=== PATIENT | female | born 1985 | race Two or more races ===

== ENCOUNTER 2016-08-01 10:36 | Emergency (ER) | payer BC, OTHER ==
[~2016-08-01] VITALS: Ht 160 cm; Wt 70.8 kg
[~2016-08-01 10:36] MED LIST: HYDR-971 PO; IBUP-1060 PO; NAPR500T8 PO; OXYC-244 PO; PNV1TABL25 PO
[2016-08-01 11:12] VITALS: BP 128/92
--- NOTE | 2016-08-01 12:36 | PHYS DOC ---
Past Medical History Past Medical History: No Pertinent History Past Surgical History: , Other Additional Past Surgical Histo: BREAST SURG Alcohol Use: None Drug Use: None Adult General Chief Complaint Chief Complaint: VAGINAL PROBLEM [facility] HPI Patient is a 31 year old female who presents stating yesterday she noted she has extra vaginal tissue hanging around the vagina, patient denies any concern for STDs. She states she also noted increased vaginal discharge since yesterday. Patient denies any chance she is . Denies any urgency frequency or dysuria. She states she has an appointment with her DATA TECHNICIAN on next week. Patient is Czech-speaking and interpretation was provided by the Review of Systems Review of Systems Constitutional: Denies fever or chills [] Eyes: Denies change in visual acuity, redness, or eye pain [] HENT: Denies nasal congestion or sore throat [] Respiratory: Denies cough or shortness of breath [] Cardiovascular: No additional information not addressed in HPI [] GI: Denies abdominal pain, nausea, vomiting, bloody stools or diarrhea [] : extra vaginal tissue hanging around the vagina Musculoskeletal: Denies back pain or joint pain [] Integument: Denies rash or skin lesions [] Neurologic: Denies headache, focal weakness or sensory changes [] Endocrine: Denies polyuria or polydipsia [] Allergies Allergies Allergies Coded Allergies Type Severity Reaction Last Updated Verified No Known Drug Allergies 05/02/14 No Physical Exam Physical Exam Constitutional: Well developed, well nourished, no acute distress, non-toxic appearance. [] HENT: Normocephalic, atraumatic, bilateral external ears normal, oropharynx moist, no oral exudates, nose normal. [] Eyes: PERRLA, EOMI, conjunctiva normal, no discharge. [] Neck: Normal range of motion, no tenderness, supple, no stridor. [] Cardiovascular:Heart rate regular rhythm, no murmur [] Lungs & Thorax: Bilateral breath sounds clear to auscultation [] Abdomen: Bowel sounds normal, soft, no tenderness, no masses, no pulsatile masses. [] Pelvic exam Lower aspect of the vaginal opening has mild amount of extra tissue with the redness, the tissue is not draining anything. The tissue is not warm or tender to touch. Cervix is closed no CMT, no adnexal tenderness, small amount of yellow discharge in the vaginal vault. No bleeding Skin: Warm, dry, no erythema, no rash. [] Back: No tenderness, no CVA tenderness. [] Extremities: No tenderness, no cyanosis, no clubbing, ROM intact, no edema. [] Neurologic: Alert and oriented X 3, normal motor function, normal sensory function, no focal deficits noted. [] Psychologic: Affect normal, judgement normal, mood normal. [] Current Patient Data Vital Signs Vital Signs Date Time Temp Pulse Resp B/P Pulse Ox O2 Delivery O2 Flow Rate FiO2 08/01/16 11:12 97.5 92 16 128/92 99 Room Air 97.5 Lab Values Laboratory Tests Test 08/01/16 11:10 08/01/16 12:00 POC Urine HCG, Qualitative Hcg negative (Negative) Urine Collection Type Void Urine Color Yellow Urine Clarity Turbid Urine pH 6.5 Urine Specific [place] 1.025 Urine Protein 100mg/dL (NEG-TRACE) Urine Glucose (UA) Negativemg/dL (NEG) Urine Ketones (Stick) Negativemg/dL (NEG) Urine Blood Moderate (NEG) Urine Nitrite Negative (NEG) Urine Bilirubin Negative (NEG) Urine Urobilinogen Dipstick 0.2mg/dL (0.2 mg/dL) Urine Leukocyte Esterase Large (NEG) Urine RBC 1-2/HPF (0-2) Urine WBC Tntc/HPF (0-4) Urine Squamous Epithelial Cells Many/LPF Urine Bacteria Many/HPF (0-FEW) Urine Mucus Marked/LPF Microbiology 08/01/16 Wet Prep - Final, Complete EKG EKG [] Radiology/Procedures Radiology/Procedures [] Course & Med Decision Making Course & Med Decision Making Pertinent Labs and Imaging studies reviewed. (See chart for details) Patient is in the ED complaining of external vaginal tissue that she noted on her vaginal wall. On physical exam she does have extra erythematous tissue on the lower aspect of the vaginal opening. Wet prep is negative for any acute findings. Urine analysis is positive for infection. Discharged with Keflex. She has an appointment with Dr. Camacho her DATA TECHNICIAN on . Dragon Disclaimer Dragon Disclaimer This electronic medical record was generated, in whole or in part, using a voice recognition dictation system. Departure Departure Impression: Primary Impression: Urinary tract infection Additional Impression: Vaginal infection Disposition: HOME, SELF-CARE Condition: STABLE Referrals: NO PCP (PCP) NEELAM CAMACHO MD Follow up on as scheduled Patient Instructions: Skin Infections Additional Instructions: You have skin infection on the vaginal wall and urinary tract infection. Please complete your antibiotics. See Dr. Woodruff next Scripts Cephalexin 500 Mg Tablet1 Tab PO BID #14 TAB Prov:GARETH LONDONO APRN 08/01/16 Problem Qualifiers Primary Impression: Urinary tract infection Urinary tract infection type: acute cystitis Hematuria presence: without hematuria Qualified Code: N30.00 - Acute cystitis without hematuria GARETH LONDONO APRN Aug 01, 2016 12:36
--- NOTE | 2016-08-01 14:03 | RAD ---
Pelvic ultrasound-Limited, 08/01/2016: History: Vaginal lump Transabdominal and translabial scans of the vaginal region were obtained as requested. We did not evaluate the uterus or adnexa on this limited study. No vaginal mass is identified. If a mass of significant size is clinically suspected, CT scanning could be considered for further evaluation.
[2016-08-01 14:24] LABS: BILIRUBIN,URINE NEGATIVE (NEG); GLUCOSE,URINE NEGATIVE (NEG); NITRITE,URINE NEGATIVE (NEG); PH,URINE 6.5; PROTEIN,URINE 100 mg/dL (NEG-TRACE); UROBILINOGEN,URINE 0.2 mg/dL (0.2 mg/dL)
[2016-08-01 14:38] LABS: BACTERIA,URINE MANY /HPF (0-FEW); SQUAMOUS EPITHELIAL CELL,UR MANY /LPF; WBC,URINE TNTC /HPF (0-4)
[2016-08-01] MEDS ORDERED: CEPH500T PO (15:11)
== END 2016-08-01 15:19 | disposition home or self-care (01) ==
LOC: ER 10:36
DX: N30.00 Acute cystitis without hematuria (principal); N76.0 Acute vaginitis
CPT/HCPCS: 76857; 81001; 81025; 87491; 87591; 99285; Q0111

== ENCOUNTER → 2019-01-12 | Outpatient (CLI) | payer OTHER ==
[~2019-01-12] MED LIST changes: +CEPH500T PO; +HYDR-3164 PO; -HYDR-971 PO; -OXYC-244 PO; +OXYC1TAB19 PO
--- NOTE | 2019-01-12 15:27 | KCIC ---
Examination: Ultrasound pelvis HISTORY: History of abnormal uterine bleeding COMPARISON: 08/01/2016. FINDINGS: The uterus measures 8.4 x 5.6 x 3.4 cm. Endometrium measures 9.7 mm in thickness. The right ovary measures 2.6 x 1.8 x 1.4 cm. The left ovary measures 2.7 x 1.5 x 1.6 cm. Blood flow identified in the right and left ovaries. IMPRESSION: 1. Endometrium measures 9.7 mm which is mildly thickened for this stage of menstrual cycle, given patient's recent LMP. Electronically signed by: Alan Desir MD (01/12/2019 3:24 PM) [place] [id number]
== END | disposition home or self-care (01) ==
LOC: KCIC US 14:07
PROVIDERS: ATTEND Obstetrics & Gynecology
DX: N93.9 Abnormal uterine and vaginal bleeding, unspecified (principal)
CPT/HCPCS: 76830; 76856

== ENCOUNTER 2019-12-21 09:19 | Emergency (ER) | payer OTHER ==
[~2019-12-21] VITALS: Ht 162.6 cm; Wt 70.0 kg
--- NOTE | 2019-12-21 09:50 | PHYS DOC ---
Past Medical History Past Medical History: No Pertinent History Past Surgical History: , Other Additional Past Surgical Histo: BREAST SURG Smoking Status: Never Smoker Alcohol Use: None Drug Use: None General Adult EDM: Chief Complaint: VAGINAL BLEEDING HPI: HPI: The history was obtained from the patient. Patient is a 34-year-old female with no reported PMH who presents with a chief complaint of vaginal bleeding. Patient states she woke up this morning approximately 3 hours prior to arrival noted blood in her underwear. She states it is slightly less than her normal period amount. She denies any clot passage. She denies any abdomina l pain. She denies any lightheadedness or syncope. She states that she has not had care to this point. She states the first day of her last menstrual period was November 07. She estimates she is 7 weeks . She states that she actually scheduled an appointment with OLERICULTURE TEACHER at 2:00 this afternoon but wanted to be seen sooner. Denies urinary symptoms. Denies any other vaginal discharge. Denies history of ectopic . No other complaints. Review of Systems: Review of Systems: Constitutional: Denies fever or chills. [] Eyes: Denies change in visual acuity. [] HENT: Denies nasal congestion or sore throat. [] Respiratory: Denies cough or shortness of breath. [] Cardiovascular: Denies chest pain or edema. [] GI: Denies abdominal pain, nausea, vomiting, bloody stools or diarrhea. [] : Positive for vaginal bleeding Musculoskeletal: Denies back pain or joint pain. [] Integument: Denies rash. [] Neurologic: Denies headache, focal weakness or sensory changes. [] Endocrine: Denies polyuria or polydipsia. [] Lymphatic: Denies swollen glands. [] Psychiatric: Denies depression or anxiety. [] Heart Score: Risk Factors: Risk Factors: DM, Current or recent (<one month) smoker, HTN, HLP, family history of CAD, obesity. Risk Scores: Score 0 - 3: 2.5% MACE over next 6 weeks - Discharge Home Score 4 - 6: 20.3% MACE over next 6 weeks - Admit for Clinical Observation Score 7 - 10: 72.7% MACE over next 6 weeks - Early Invasive Strategies Current Medications: Current Medications Medications (Trade) Dose Ordered Sig/Nicholas Start Time Stop Time Status Last Admin Dose Admin Acetaminophen (Tylenol) 1,000 mg 1X ONCE 12/21/19 09:45 12/21/19 09:46 DC Allergies: Allergies: Allergies Coded Allergies Type Severity Reaction Last Updated Verified No Known Drug Allergies 05/02/14 No Physical Exam: PE: Constitutional: Well developed, well nourished, no acute distress, non-toxic appearance. [] HENT: Normocephalic, atraumatic, bilateral external ears normal, oropharynx moist, no oral exudates, nose normal. [] Eyes: PERRLA, EOMI, conjunctiva normal, no discharge. [] Neck: Normal range of motion, no tenderness, supple, no stridor. [] Cardiovascular:Heart rate regular rhythm, no murmur [] Lungs & Thorax: Bilateral breath sounds clear to auscultation [] Abdomen: Soft, nontender, nonacute abdomen. No involuntary guarding or rigidity noted. No acute peritonitis. Pelvic: Chaperoned by FLORENCIO Forte. Scant amount of mucousy bloody discharge. No active bleeding noted. No parts visualized. No clots noted. Skin: Warm, dry, no erythema, no rash. [] Back: No tenderness, no CVA tenderness. [] Extremities: No tenderness, no cyanosis, no clubbing, ROM intact, no edema. [] Neurologic: Alert and oriented X 3, normal motor function, normal sensory function, no focal deficits noted. [] Psychologic: Affect normal, judgement normal, mood normal. [] Current Patient Data: Labs: Laboratory Tests Test 12/21/19 09:37 12/21/19 09:49 Bedside Urine HCG, Qualitative Hcg positive White Blood Count 7.2 x10^3/uL Red Blood Count 4.64 x10^6/uL Hemoglobin 13.9 g/dL Hematocrit 39.8 % Mean Corpuscular Volume 86 fL Mean Corpuscular Hemoglobin 30 pg Mean Corpuscular Hemoglobin Concent 35 g/dL Red Cell Distribution Width 13.3 % Platelet Count 327 x10^3/uL Neutrophils (%) (Auto) 64 % Lymphocytes (%) (Auto) 27 % Monocytes (%) (Auto) 6 % Eosinophils (%) (Auto) 3 % Basophils (%) (Auto) 1 % Neutrophils # (Auto) 4.6 x10^3/uL Lymphocytes # (Auto) 1.9 x10^3/uL Monocytes # (Auto) 0.4 x10^3/uL Eosinophils # (Auto) 0.2 x10^3/uL Basophils # (Auto) 0.1 x10^3/uL Maternal Serum HCG Beta Subunit 09372 mIU/mL Sodium Level 137 mmol/L Potassium Level 3.9 mmol/L Chloride Level 104 mmol/L Carbon Dioxide Level 24 mmol/L Anion Gap 9 Blood Urea Nitrogen 10 mg/dL Creatinine 0.6 mg/dL Estimated GFR (Cockcroft-Gault) 114.4 Glucose Level 110 mg/dL Calcium Level 8.5 mg/dL Current Medications Medications (Trade) Dose Ordered Sig/Nicholas Route PRN Reason Start Time Stop Time Status Last Admin Dose Admin Acetaminophen (Tylenol) 1,000 mg 1X ONCE PO 12/21/19 09:45 12/21/19 09:46 DC 12/21/19 10:14 Laboratory Tests Test 12/21/19 09:37 POC Urine HCG, Qualitative Hcg positive (Negative) EKG: EKG: [] Radiology/Procedures: Radiology/Procedures: [][facility] [address] [place] [address] IMAGING REPORT Signed PATIENT: NAVJOT EDUARDO AACCOUNT: [id number] : 1985 LOCATION: ER AGE: 34 SEX: F EXAM STATUS: REG ER ORD. PHYSICIAN: YOLANDA STEIN DO REASON: confirm IUP. vag bleed PROCEDURE: OB <14 WKS W/TV OB <14 WKS W/TV History: IUP, vaginal bleeding Comparison: None. Findings: Multiple transabdominal sonographic images of the pelvis are submitted. Uterus measures about 6.8 x 3.2 x 4.8 cm. Transvaginal ultrasound: Multiple transvaginal sonographic images of the pelvis are submitted. There is a single intrauterine gestational sac with identifiable yolk sac and pole. Gestational sac morphology is within normal limits. There is demonstrable cardiac activity 133 bpm. Amniotic fluid volume is within normal limits. anatomy and placenta are not well visualized at this age of the . [place]-rump length measurement of 0.44 cm corresponds with 6 weeks 1 day. Adjusted ultrasound age is 6 weeks 1 day with estimated delivery date of 08/14/2020. LMP age is 6 weeks 1 day with estimated delivery date of 08/14/2020. Right ovary measured 3.2 x 2.1 x 2 cm. There is a hypoechoic lesion of the right ovary about 1.2 cm. There is normal low resistance vascularity of the right ovary. Left ovary measured 2.5 x 1 x 0.9 cm, normal low resistance vascularity. Impression: 1. There is a single viable intrauterine with demonstrable cardiac activity, adjusted ultrasound age 6 weeks 1 day with estimated delivery date of 08/14/2020. 2. There is a hypoechoic cyst of the right ovary which may be corpus luteal cyst. Electronically signed by: Kylie Hurst MD (12/21/2019 10:48 AM) [id number] DICTATED and SIGNED BY: KYLIE HURST MD DATE: 12/21/19 1048 Course & Med Decision Making: Course & Med Decision Making Pertinent Labs and Imaging studies reviewed. (See chart for details) Patient is a 34-year-old G3, P2 female who presents with chief complaint of vaginal burning associated with . Ultrasound does reveal intrauterine . Estimated gestational age 6 weeks 1 day. heart tones noted. Blood type B+ therefore RhoGam be deferred. Remainder of work-up unremarkable. I did discuss results of labs and imaging with the patient and father at bedside. Patient has had appoint with her OLERICULTURE TEACHER in 3 hours. I do feel she is appropriate for discharge home. Return precautions discussed and understood. Stable for discharge. Tahmina Disclaimer: Tahmina Disclaimer: This electronic medical record was generated, in whole or in part, using a voice recognition dictation system. Departure Departure Impression: Primary Impression: Threatened Disposition: 01 HOME, SELF-CARE Condition: GOOD Referrals: NO PCP (PCP) Patient Instructions: Threatened Miscarriage Additional Instructions: Please follow-up with your scheduled OLERICULTURE TEACHER appointment in the next 3 hours. Justicifation of Admission Dx: Justifications for Admission: Justification of Admission Dx: N/A YOLANDA STEIN DO Dec 21, 2019 09:50
[2019-12-21 10:04] LABS: BASO # 0.1 x10^3/uL (0.0-0.2); BASO % 1 % (0-3); EOS # 0.2 x10^3/uL (0.0-0.7); EOS % 3 % (0-3); HEMATOCRIT 39.8 % (36.0-47.0); HEMOGLOBIN 13.9 g/dL (12.0-15.5); LYMPH # 1.9 x10^3/uL (1.0-4.8); LYMPH % 27 % (24-48); MEAN CORPUSCULAR HEMOGLOBIN 30 pg (25-35); MEAN CORPUSCULAR HGB CONC 35 g/dL (31-37); MEAN CORPUSCULAR VOLUME 86 fL (79-100); MONO # 0.4 x10^3/uL (0.0-1.1); MONO % 6 % (0-9); NEUT # 4.6 x10^3/uL (1.8-7.7); NEUT % 64 % (31-73); PLATELET COUNT 327 x10^3/uL (140-400); RED BLOOD COUNT 4.64 x10^6/uL (3.50-5.40); RED CELL DISTRIBUTION WIDTH 13.3 % (11.5-14.5); WHITE BLOOD COUNT 7.2 x10^3/uL (4.0-11.0)
[2019-12-21 10:13] LABS: CALCIUM 8.5 mg/dL (8.5-10.1); CREATININE 0.6 mg/dL (0.6-1.0); GFR 114.4; POTASSIUM 3.9 mmol/L (3.5-5.1)
[2019-12-21] MEDS: ACETAMINOPHEN 500 MG TABLET PO ONE (10:14)
--- NOTE | 2019-12-21 10:51 | RAD ---
OB <14 WKS W/TV History: IUP, vaginal bleeding Comparison: None. Findings: Multiple transabdominal sonographic images of the pelvis are submitted. Uterus measures about 6.8 x 3.2 x 4.8 cm. Transvaginal ultrasound: Multiple transvaginal sonographic images of the pelvis are submitted. There is a single intrauterine gestational sac with identifiable yolk sac and pole. Gestational sac morphology is within normal limits. There is demonstrable cardiac activity 133 bpm. Amniotic fluid volume is within normal limits. anatomy and placenta are not well visualized at this age of the . [place]-rump length measurement of 0.44 cm corresponds with 6 weeks 1 day. Adjusted ultrasound age is 6 weeks 1 day with estimated delivery date of 08/14/2020. LMP age is 6 weeks 1 day with estimated delivery date of 08/14/2020. Right ovary measured 3.2 x 2.1 x 2 cm. There is a hypoechoic lesion of the right ovary about 1.2 cm. There is normal low resistance vascularity of the right ovary. Left ovary measured 2.5 x 1 x 0.9 cm, normal low resistance vascularity. Impression: 1. There is a single viable intrauterine with demonstrable cardiac activity, adjusted ultrasound age 6 weeks 1 day with estimated delivery date of 08/14/2020. 2. There is a hypoechoic cyst of the right ovary which may be corpus luteal cyst. Electronically signed by: Reji Perez MD (12/21/2019 10:48 AM) [id number]
[2019-12-21 11:30] VITALS: BP 108/70
== END 2019-12-21 11:44 | disposition home or self-care (01) ==
LOC: ER 09:19
DX: O20.0 Threatened abortion (principal); Z98.890 Other specified postprocedural states; Z3A.01 Less than 8 weeks gestation of pregnancy
CPT/HCPCS: 36415; 76801; 76817; 80048; 81025; 84702; 85025; 86850; 86900; 86901; 87491; 87591; 99285; Q0111

== ENCOUNTER → 2020-05-30 | Outpatient (CLI) | payer MEDICAID | LOC: LAB 08:06 | PROVIDERS: ATTEND Obstetrics & Gynecology | DX: O09.92 Supervision of high risk pregnancy, unspecified, second trimester (principal); Z3A.27 27 weeks gestation of pregnancy | CPT/HCPCS: 36415; 82947; 82950 ==

== ENCOUNTER 2021-04-10 20:40 | Emergency (ER) | payer MEDICAID ==
[~2021-04-10] VITALS: Ht 157.5 cm; Wt 67.0 kg
[2021-04-10 21:53] LABS: BILIRUBIN,URINE NEGATIVE (NEG); CLARITY,URINE CLEAR; COLOR,URINE YELLOW; NITRITE,URINE NEGATIVE (NEG); PH,URINE 7.5 (<5.0-8.0); PROTEIN,URINE NEGATIVE (NEG-TRACE)
[2021-04-10 22:02] LABS: BACTERIA,URINE FEW /HPF (0-FEW); RBC,URINE OCC /HPF (0-2)
--- NOTE | 2021-04-10 22:15 | PHYS DOC ---
Past Medical History Past Medical History: No Pertinent History (RAFAELA CRUZ APRN) Past Surgical History: , Other Additional Past Surgical Histo: BREAST SURG (RAFAELA CRUZ APRN) Smoking Status: Never Smoker Alcohol Use: None Drug Use: None (RAFAELA CRUZ APRN) General Adult EDM: Chief Complaint: BACK PAIN - NO INJURY HPI: HPI: Patient is a 35-year-old female that presents today with low back pain. Patient is Persian-speaking only so interpretive services have been used for this exam. Patient states her pain started 3 days ago, she denies any trauma. Patient states that she had the same pain about 2 years ago and was diagnosed with kidney or bladder infection, and was treated, she was told also to follow-up with a kidney specialist she stated that her pain went away and she never followed up after that. Patient is sitting crosslegged on the bed in no acute distress. Patient denies fever or chills, vaginal bleeding vaginal discharge. Patient states that her last menstrual cycle was approximately 2 weeks ago she states it was normal for her except for she did have some increased cramping at the start of her period. (RAFAELA CRUZ PATHOLOGIST ASSISTANT) Review of Systems: Review of Systems: Constitutional: Denies fever or chills. [] Eyes: Denies change in visual acuity. [] HENT: Denies nasal congestion or sore throat. [] Respiratory: Denies cough or shortness of breath. [] Cardiovascular: Denies chest pain or edema. [] GI: Denies abdominal pain, nausea, vomiting, bloody stools or diarrhea. [] : Denies dysuria. [] Musculoskeletal: Low back pain Integument: Denies rash. [] Neurologic: Denies headache, focal weakness or sensory changes. [] Endocrine: Denies polyuria or polydipsia. [] Lymphatic: Denies swollen glands. [] Psychiatric: Denies depression or anxiety. [] (RAFAELA CRUZ PATHOLOGIST ASSISTANT) Heart Score: C/O Chest Pain: N/A Risk Factors: Risk Factors: DM, Current or recent (<one month) smoker, HTN, HLP, family history of CAD, obesity. Risk Scores: Score 0 - 3: 2.5% MACE over next 6 weeks - Discharge Home Score 4 - 6: 20.3% MACE over next 6 weeks - Admit for Clinical Observation Score 7 - 10: 72.7% MACE over next 6 weeks - Early Invasive Strategies (RAFAELA CRUZ APRN) Allergies: Allergies: Allergies Coded Allergies Type Severity Reaction Last Updated Verified No Known Drug Allergies 05/02/14 No (RAFAELA CRUZ APRN) Physical Exam: PE: Constitutional: Well developed, well nourished, no acute distress, non-toxic a ppearance. [] HENT: Normocephalic, atraumatic, bilateral external ears normal, oropharynx moist, no oral exudates, nose normal. [] Eyes: PERRLA, EOMI, conjunctiva normal, no discharge. [] Neck: Normal range of motion, no tenderness, supple, no stridor. [] Cardiovascular:Heart rate regular rhythm, no murmur [] Lungs & Thorax: Bilateral breath sounds clear to auscultation [] Abdomen: Bowel sounds normal, soft, no tenderness, no masses, no pulsatile masses. [] Skin: Warm, dry, no erythema, no rash. [] Back: Low back pain with tenderness with palpation, no radiculopathy neurovascular intact distal to the pain, patient ambulates without difficulty Extremities: No tenderness, no cyanosis, no clubbing, ROM intact, no edema. [] Neurologic: Alert and oriented X 3, normal motor function, normal sensory func tion, no focal deficits noted. [] Psychologic: Affect normal, judgement normal, mood normal. [] (RAFAELA CRUZ PATHOLOGIST ASSISTANT) Current Patient Data: Labs: Laboratory Tests Test 04/10/21 20:54 04/10/21 20:56 POC Urine HCG, Qualitative Hcg negative (Negative) Urine Collection Type Unknown Urine Color Yellow Urine Clarity Clear Urine pH 7.5 (<5.0-8.0) Urine Specific [place] 1.015 (1.000-1.030) Urine Protein Negative mg/dL (NEG-TRACE) Urine Glucose (UA) Negative mg/dL (NEG) Urine Ketones (Stick) Negative mg/dL (NEG) Urine Blood Negative (NEG) Urine Nitrite Negative (NEG) Urine Bilirubin Negative (NEG) Urine Urobilinogen Dipstick 1.0 mg/dL (0.2 mg/dL) Urine Leukocyte Esterase Negative (NEG) Urine RBC Occ /HPF (0-2) Urine WBC 1-4 /HPF (0-4) Urine Squamous Epithelial Cells Mod /LPF Urine Transitional Epithelial Cells Occ /LPF Urine Bacteria Few /HPF (0-FEW) Urine Mucus Slight /LPF Vital Signs: Vital Signs Date Time Temp Pulse Resp B/P (MAP) Pulse Ox O2 Delivery O2 Flow Rate FiO2 04/10/21 21:14 98.3 102 16 140/91 (107) 99 Room Air 98.3 (RAFAELA CRUZ APRN) EKG: EKG: [] (RAFAELA CRUZ APRN) Radiology/Procedures: Radiology/Procedures: [] (RAFAELA CRUZ APRN) Course & Med Decision Making: Course & Med Decision Making Pertinent Labs and Imaging studies reviewed. (See chart for details) [address] Singh regarding patient's symptoms and urinalysis. At this time with the lack of leukoesterase and lack of nitrates in her urine will not treat for urinary tract infection. We will send patient home with Motrin for pain. Will encourage her to follow-up with one of the clinics located on the brochure or her primary care physician for further follow-up if not any better in the next 3 to 5 days. Encourage patient to return if pain increases, she develops a fever or chills, or painful urination. (RAFAELA CRUZ APRN) Course & Med Decision Making Patients Care and treatment plan provided by ER Nurse Practitioner. I was available for consult. Patient's chart reviewed. (ELLE SINGH I DO) Tahmina Disclaimer: Tahmina Disclaimer: This electronic medical record was generated, in whole or in part, using a voice recognition dictation system. (RAFAELA CRUZ APRN) Departure Departure Impression: Primary Impression: Low back pain Qualified Codes: M54.50 - Low back pain, unspecified Disposition: HOME / SELF CARE / HOMELESS Condition: STABLE Referrals: NO PCP (PCP) Patient Instructions: Back Pain, Adult Additional Instructions: Take Motrin 600 mg every 6 hours as needed for pain Take Flexeril 10 mg every 8 hours as needed for muscle spasms or pain, use with caution due to this medication may cause drowsiness Return to the emergency department if you develop increased back pain or lower abdominal pain, you develop fever and chills, you have increased pain or frequency in urination or you notice blood in your urine Follow-up with your primary care physician or one of the clinic on the brochure provided for further follow-up Scripts Ibuprofen (IBUPROFEN) 600 Mg Tablet 600 MG PO PRN Q6HRS PRN for INFLAMMATION, #30 TAB Prov: RAFAELA CRUZ APRN 04/10/21 RAFAELA CRUZ APRN Apr 10, 2021 22:15 ELLE SINGH DO Apr 11, 2021 19:34
[2021-04-10] MEDS ORDERED: IBUP-1007 PO (22:26)
[2021-04-10 22:28] VITALS: BP 121/81
[2021-04-10] MEDS ORDERED: IBUPROFEN 200 MG TABLET. PO ONE (22:30)
== END 2021-04-10 22:35 | disposition home or self-care (01) ==
LOC: ER 20:40
DX: M54.50 Low back pain, unspecified (principal); Z98.890 Other specified postprocedural states
CPT/HCPCS: 81001; 81025; 99285